=== PATIENT | male | born 1965 | race Caucasian/White ===

== ENCOUNTER 2016-06-16 18:29 | Inpatient (IN) ==
--- NOTE | 2016-06-16 19:22 | PROVIDER DOCUMENTATION ---
HPI-Abdominal Pain/GI Problem - General Chief Complaint: Cold Symptoms Stated Complaint: ABD/BACK PAIN, FEVER, COUGH, CONGESTION Time Seen by Provider: 06/16/16 19:17 Source: patient Allergies/Adverse Reactions: Patient Allergies Allergy/AdvReac Type Severity Reaction Status Date / Time No Known Allergies Allergy Verified 05/15/16 09:07 Home Medications: Home Medication List Medication Instructions Recorded Confirmed Last Taken Type NK [No Home Medications] 05/15/16 05/15/16 Unknown History - History of Present Illness-ABD Nature of Presenting Problems: 51 yom c/o chills, fever, abd pain, n/v. The symptoms been going on for about 5 days. Pt points to RUQ where most of the Abdominal pain is located. Pt's skin is jaundiced also. Pt reports having Hepatitis C 5 years ago but treated in [place] and was told it was cured. Abdominal Pain Onset Location: reports: RUQ Pain Radiation: reports: no radiation Quality of Pain: reports: sharp Onset/Duration: reports: 5 days ago Timing: reports: still present, getting worse Activities at Onset: reports: rest Exposure to sick contacts?: No Modifying Factors: improves with: coughing Associated Symptoms: reports: cough, fever/chills, nausea, vomiting Last BM: this morning Dark Stools Present?: reports: none noticed Rectal Bleeding: reports: none Rectal Pain: reports: none Bruising or Bleeding Gums?: No Similar Symptoms Previously?: No Recently seen or treated by another doctor?: No Review of Systems - Adult - REVIEW OF SYSTEMS - ADULT Constitutional: reports: see HPI, chills Eyes: reports: no symptoms reported Ears, Nose, Mouth & Throat: reports: no symptoms reported Cardiovascular: reports: no symptoms reported Respiratory: reports: see HPI, cough Gastrointestinal: reports: see HPI, abdominal pain, nausea, vomiting Genitourinary: reports: no symptoms reported Musculoskeletal: reports: no symptoms reported Integumentary: reports: see HPI, other (Jaundiced skin) Neurological: reports: see HPI All Other Systems: Reviewed and Negative Past History - Adult - PAST MEDICAL HISTORY-ADULT Review of Records: reports: Old Records Reviewed, Nursing Assessment Review, Medications Reviewed, Social history reviewed & non-contributory. Major Childhood Illnesses: reports: denies history Cardiovascular: reports: denies history Respiratory: reports: denies history Gastrointestinal: reports: denies history Obstetrical/Gynecological: reports: denies history Genitourinary: reports: denies history Musculoskeletal: reports: denies history Neurological: reports: denies history Endocrine/Immune: reports: denies history Other Conditions: reports: denies history Physical Exam-General - PHYSICAL EXAM-ADULT Initial Vital Signs Reviewed: Yes - CONSTITUTIONAL General Appearance: appears well, alert, no apparent distress - EYES Eyes: PERRL/EOMI, other (very mild Jaundiced conjuctiva) - HEAD, EARS, NOSE, MOUTH & THROAT HENMT: normocephalic/atraumatic, moist mucous membranes, normal ENT inspection, TMs normal, pharynx normal - NECK Neck: non-tender, full range of motion, supple, normal inspection - RESPIRATORY Respiratory: chest non-tender, lungs clear, normal breath sounds, no pleuratic chest pain, no respiratory distress, no accessory muscle use - CARDIOVASCULAR Cardiovascular: normal peripheral pulses, regular rate, rhythm, no edema, no gallop, no JVD, no murmur - GASTROINTESTINAL (ABDOMEN) Abdominal Exam: normal bowel sounds, soft, no pulsatile mass, tenderness, hepatomegaly. negative: spleenomegaly, McBurney's point tenderness, Das's sign, obturator sign, prominent aortic pulsations, psoas, Rovsing's sign - LYMPHATIC Lymphatic: no adenopathy - MUSCULOSKELETAL Back Exam: normal inspection, no CVA tenderness, no vertebral tenderness Extremity: normal range of motion, non-tender, normal gait, normal inspection, no pedal edema, no calf tenderness, normal capillary refill, pelvis stable - SKIN Integumentary: normal turgor, warm/dry, jaundice - NEUROLOGIC Neurologic: grossly normal - PSYCHIATRIC Psych/Mental Status: oriented x 3 Progress - PLAN OF CARE/RESULTS Progress/Plan/Lab Results: Vital Signs - 8 hr 06/16/16 18:35 Temperature 97.9 F Pulse Rate 104 H Respiratory Rate 18 Blood Pressure 139/95 O2 Sat by Pulse Oximetry 99 Orders Category Date Time Status Saline Loc DIRECTED Care 06/16/16 19:16 Ordered NPO Diet 06/16/16 19:[address] ABD/PELVIS W/ IV CONT ONLY [CT] Stat Exams 06/16/16 19:17 Ordered AMMONIA [CHEM] Stat Lab 06/16/16 19:16 Uncollected AMYLASE [CHEM] Stat Lab 06/16/16 19:16 Uncollected CBC WITH ELECTRONIC DIFF [HEME] Stat Lab 06/16/16 19:16 Uncollected COMPREHENSIVE METABOLIC PANEL [CHEM] Stat Lab 06/16/16 19:16 Uncollected LIPASE [CHEM] Stat Lab 06/16/16 19:16 Uncollected URINALYSIS W/POSS RFLX CULT-1 [URINALYSIS] Stat Lab 06/16/16 19:16 Uncollected Result Diagrams: 06/16/16 19:30 06/16/16 19:30 - XRAY 1 XRAY Study: Chest Impression: Normal (Per Dr. Bridges.) - CT/MRI 1 CT Study: Abdomen, Pelvis Impression: See EMR Report (Contractrion and marked thickening of the GB wall with high dense material in the GB lumen. Opacification and fluid aroung GB suggesting cholecystitis. Ascities around liver and layering in the pelvis.) - CONSULTS/PCP/HOSPITALIST Notification #1 *Consult/PCP/Hospitalist*: Erik Time Discussed: 22:43 Consult Disposition: Admit Departure - Departure Time of Disposition Decision: 22:42 DIAGNOSIS: Cirrhosis Qualifiers: Hepatic cirrhosis type: unspecified hepatic cirrhosis Ascites presence: with ascites Qualified Code(s): K74.60 - Unspecified cirrhosis of liver Disposition: ADMITTED INPATIENT 09 Certified Medical Emergency: Emergent Condition: Stable Referrals and Follow-Ups: None,PCP [Primary Care Provider] - - Critical Care Note This patient required my direct & personal management of CC.: No Attestation - Physician/ LOVE Attestation Patient care was provided by Advanced Practice Provider:: Yes Advanced Practice Provider:: Bassam Burns Advanced Practice Provider documentation review:: The Mid-level provider documentation, treatment plan and medical decision making was reviewed by the physician who agrees with all treatment and medical decision making by the MLP.
[2016-06-16 19:59] LABS: BASO% 0.8 % (0.0-0.8); EOS# 0.13 X1000 (0.0-0.7); EOS% 1.4 % (0.0-10.0); HEMATOCRIT 46.8 % (42.0-52.0); HEMOGLOBIN 16.5 g/dL (14.0-18.0); IMM GRAN# 0.03 X1000 (0.0-0.04); IMM GRAN% 0.3 % (0.0-0.5); LYMPH# 2.75 X1000 (1.2-3.4); LYMPH% 29.1 % (20.5-51.1); MANUAL DIFF NEEDED? NO; MCHC 35.3 g/dL (33-37); MCV 87.8 FL (81-99); MONO# 0.91 X1000 (0.11-0.59); MONO% 9.6 % (1.7-9.3); MPV 11.6 FL (7.4-10.4); NEUT% 58.8 % (42.2-75.2); PLT 74 X1000 (130-400); RBC 5.33 XMIL (4.7-6.1)
[2016-06-16 20:36] LABS: AGAP 14; ALBUMIN 3.6 g/dL (3.5-5.0); ALKALINE PHOSPHATASE 90 U/L (32-122); AMYLASE 33 U/L (20-200); BUN 20 mg/dL (8-22); CALCIUM 8.9 mg/dL (8.8-10.2); CHLORIDE 92 mmol/L (98-107); COSMO 262; GOT 2545 U/L (10-34); GPT 4534 U/L (10-44); LIPASE 27 U/L (13-60); POTASSIUM 4.7 mmol/L (3.5-5.1); SODIUM 129 mmol/L (136-145); TCO2 23 mmol/L (25-35); TOTAL PROTEIN 5.6 g/dL (6.3-8.3)
[2016-06-16 20:53] LABS: URINE SOURCE CLEAN CATCH
[2016-06-16 20:56] LABS: BILIRUBIN URINE LARGE (NEGATIVE); BLOOD URINE TRACE (NEGATIVE); COLOR YELLOW; GLUCOSE URINE NEGATIVE (NEGATIVE); LEUKOCYTES URINE NEGATIVE (NEGATIVE); NITRITE URINE NEGATIVE (NEGATIVE); PROTEIN URINE 30 mg/dL (NEGATIVE); SP GRAVITY URINE 1.021; TURBIDITY URINE HAZY (CLEAR); URINE MICRO REVIEW NEEDED? YES; UROBILINOGEN URINE 3 mg/dL (NORMAL)
[2016-06-16 21:02] LABS: UR EPITHELIAL CELLS <10 /HPF (<10); URINE BACTERIA NEGATIVE /HPF; URINE CULTURE NEEDED? YES; URINE RBC <10 /HPF (<10); URINE WBC TNTC /HPF (<10)
[2016-06-16 21:03] LABS: URINE CASTS EPITHELIAL PRESENT
[2016-06-16 21:12] LABS: INR 2.12
[2016-06-16 21:14] LABS: PROTIME 23.3 Seconds (9.2-11.7)
[2016-06-16 23:28] LABS: UR AMPHETAMINES QUAL NONE DETECTED (NONE DETECT); UR BARBITUATES QUAL NONE DETECTED (NONE DETECT); UR BENZODIAZEPIN QUAL NONE DETECTED (NONE DETECT); UR CANNABINOIDS QUAL NONE DETECTED (NONE DETECT); UR COCAINE QUAL NONE DETECTED (NONE DETECT); UR METHADONE QUAL NONE DETECTED (NONE DETECT); UR OPIATES QUAL NONE DETECTED (NONE DETECT); UR OXYCODONE QUAL NONE DETECTED (NONE DETECT); UR PCP QUAL NONE DETECTED (NONE DETECT)
[2016-06-16] MEDS: NS 1,000 ML IV SCH (23:34)
[2016-06-16] MEDS: ZOFRAN IV PRN (23:34)
[2016-06-17] MEDS: ZOSYN 3.375 GM/NS 3.375 GM/50 ML IVPB IV SCH ×4 (00:43→17:05)
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
[2016-06-17 07:24] LABS: MANUAL DIFF NEEDED? NO
[2016-06-17] MEDS: NS 1,000 ML IV SCH ×2 (07:27→15:53)
[2016-06-17] MEDS: PRILOSEC PO SCH ×2 (07:27→10:09)
[2016-06-17 07:47] LABS: INR 2.06
[2016-06-17 07:54] LABS: AGAP 11; ALBUMIN 3.4 g/dL (3.5-5.0); ALKALINE PHOSPHATASE 84 U/L (32-122); BUN 18 mg/dL (8-22); CALCIUM 8.8 mg/dL (8.8-10.2); CHLORIDE 98 mmol/L (98-107); COSMO 268; POTASSIUM 4.2 mmol/L (3.5-5.1); SODIUM 133 mmol/L (136-145); TCO2 24 mmol/L (25-35); TOTAL BILIRUBIN 17.87 mg/dL (0.20-1.00); TOTAL PROTEIN 5.2 g/dL (6.3-8.3)
[2016-06-17 08:02] LABS: BASO% 0.5 % (0.0-0.8); EOS# 0.14 X1000 (0.0-0.7); EOS% 1.8 % (0.0-10.0); HEMATOCRIT 46.6 % (42.0-52.0); HEMOGLOBIN 16.4 g/dL (14.0-18.0); IMM GRAN# 0.06 X1000 (0.0-0.04); IMM GRAN% 0.8 % (0.0-0.5); LYMPH# 2.64 X1000 (1.2-3.4); LYMPH% 33.9 % (20.5-51.1); MCH 31.2 PG (27-31); MCHC 35.2 g/dL (33-37); MCV 88.6 FL (81-99); MONO# 0.93 X1000 (0.11-0.59); MPV 12.5 FL (7.4-10.4); PLT 72 X1000 (130-400); PROTIME 22.7 Seconds (9.2-11.7); RBC 5.26 XMIL (4.7-6.1)
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
[2016-06-17 08:36] LABS: GOT 1677 U/L (10-34); GPT 3731 U/L (10-44)
--- NOTE | 2016-06-17 10:47 | Diag Imaging Result Document ---
PROCEDURE NAME: CHEST-2 VIEWS - 06/16/2016 CHEST X-RAY 2 VIEWS, 06/16/2016: COMPARISON: 05/03/2016. FINDINGS: There are stable small calcified granulomas. No focal infiltrates, pneumothorax, or pleural effusion. Heart size and pulmonary vascularity are normal. IMPRESSION: No acute disease or change from prior.
--- NOTE | 2016-06-17 12:06 | Diag Imaging Result Document ---
PROCEDURE NAME: US ABDOMEN-COMPLETE - 06/17/2016 ULTRASOUND ABDOMEN COMPLETE, 06/17/2016: COMPARISON: 06/16/2016. FINDINGS: There is complete shadowing of the gallbladder fossa, nonspecific. The pancreas is obscured by bowel gas. The spleen is enlarged. The spleen measures 16.1 x 6.8 cm. There is trace perihepatic free fluid. The liver is normal in echogenicity. The common bile duct measures 6 mm. Both kidneys are normal. Aorta, IVC and main portal vein are patent. IMPRESSION: 1. Dense shadowing in the gallbladder fossa which is indeterminate. This may possibly suggest emphysematous cholecystitis, versus a porcelain gallbladder. Correlate clinically. A HIDA scan may be useful. 2. Trace perihepatic free fluid. 3. Splenomegaly.
[2016-06-17 15:04] LABS: TOTAL IRON 181 ug/dL (53-167); UNBOUND IRON < 1 ug/dL (112-346)
[2016-06-17 15:09] LABS: TIBC 181 ug/dL
[2016-06-17 15:10] LABS: IRON SATURATION 100 %
--- NOTE | 2016-06-17 15:36 | PROGRESS NOTE ---
DATE: 06/17/2016 SUBJECTIVE: Today, Mr. Hendricks refers to be doing a little better. According to him, he started having cold symptoms about a couple of days ago, and he started using ibuprofen 2 tablets every 2- 3 hours constantly. For about 3 days now, he started having generalized weakness, nausea, vomiting, epigastric pain, and colored urination. OBJECTIVE: Vital Signs: Blood pressure is 126/78, pulse of 83, respirations 21 , temperature 97.7 degrees. General: Mr. Hendricks is a 51-year-old male. He is in bed. He does not seem to be in any distress. HEENT: Mucosa is pink and moist. 3+ icteric. No cyanosis. Cardiovascular: Regular rate and rhythm. Abdomen is soft. It is tender in the right upper quadrant and epigastrium. No hepatosplenomegaly. The abdominal wall has a midline surgical scar. There is also about a 4 cm newly staged scar on the left epigastrium and old scars as well on the left side of the abdominal wall. Extremities: No pedal edema. 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 There is no focal neurological deficit. LABORATORY DATA: WBC is 7.78, hemoglobin is 15.4, platelet count is 72,000. Chemistry: Sodium is 133, potassium is 4.2, chloride is 98, bicarb is 24. AST is 1677, ALT is 3783, alkaline phosphatase is normal. IMAGING: A CT scan of the abdomen and pelvis shows ascites likely from cirrhosis and/or cholecystitis possible. Gangrenous cholecystitis cannot be excluded. ASSESSMENT: 1. Transaminitis. Etiology is unclear at this point. The patient does have an underlying hepatitis C, but I think he was abusing drugs, specifically ibuprofen which we know can cause drug-induced liver injury (DILI ), and I am suspecting that is the cause of the acute hepatitis. Hepatitis titers have been sent. The patient's lab work and toxicology also reveal acetaminophen level of 5.7 which is remarkably low. 2. Suspected gangrenous cholecystitis. An ultrasound has been ordered. We are still waiting on the official report on that, however, also consulted the surgeons to evaluate the patient. 3. History of hepatitis C noted. 4. Resident of a correctional facility. 5. Mild hypernatremia is improving. 6. Cirrhosis of the liver on CT scan with ascites. Esl Instructor has been consulted. I think, in general, Mr. Hendricks is relatively stable. He has an possible [id number] hepatitis which I think is probably drug induced. We will be waiting on GI to evaluate the patient and give us some recommendations. For now, we will continue the current symptomatic management, avoiding any hepatotoxic drugs and also await surgery to evaluate the patient for the possible gangrenous cholecystitis. cc: Joon Mueller MD [facility]
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
[2016-06-18] MEDS: NS 1,000 ML IV SCH ×4 (01:55→23:05)
[2016-06-18] MEDS: ZOFRAN IV PRN (01:55)
[2016-06-18] MEDS: ZOSYN 3.375 GM/NS 3.375 GM/50 ML IVPB IV SCH ×5 (05:34→23:05)
[2016-06-18] MEDS: PRILOSEC PO SCH ×2 (05:59→08:55)
[2016-06-18 06:25] LABS: MANUAL DIFF NEEDED? NO
[2016-06-18 06:33] LABS: BASO% 0.6 % (0.0-0.8); EOS% 2.1 % (0.0-10.0); HEMATOCRIT 44.9 % (42.0-52.0); HEMOGLOBIN 15.4 g/dL (14.0-18.0); IMM GRAN# 0.07 X1000 (0.0-0.04); IMM GRAN% 1.4 % (0.0-0.5); LYMPH# 1.49 X1000 (1.2-3.4); LYMPH% 30.8 % (20.5-51.1); MCH 30.9 PG (27-31); MCHC 34.3 g/dL (33-37); MONO% 14.5 % (1.7-9.3); MPV 12.3 FL (7.4-10.4); NEUT% 50.6 % (42.2-75.2); PLT 62 X1000 (130-400); RBC 4.99 XMIL (4.7-6.1)
[2016-06-18 06:38] LABS: INR 1.81; PROTIME 19.7 Seconds (9.2-11.7)
[2016-06-18 07:10] LABS: AGAP 9; ALBUMIN 3.1 g/dL (3.5-5.0); ALKALINE PHOSPHATASE 81 U/L (32-122); BUN 13 mg/dL (8-22); CALCIUM 7.8 mg/dL (8.8-10.2); CHLORIDE 101 mmol/L (98-107); COSMO 271; GOT 823 U/L (10-34); GPT 2431 U/L (10-44); POTASSIUM 3.9 mmol/L (3.5-5.1); SODIUM 135 mmol/L (136-145); TCO2 25 mmol/L (25-35); TOTAL PROTEIN 5.1 g/dL (6.3-8.3)
[2016-06-18 07:11] LABS: TOTAL BILIRUBIN 16.25 mg/dL (0.20-1.00)
--- NOTE | 2016-06-18 09:27 | Diag Imaging Result Document ---
PROCEDURE NAME: HIDA SCAN W/O EJECT. FRACTION - 06/18/2016 NUCLEAR MEDICINE HIDA SCAN: COMPARISON: No prior HIDA scan is available for comparison. FINDINGS: 5.9 mCi of technetium-99 Choletec was administered intravenously, and there was normal immediate hepatocellular uptake after administration. After 90 minutes, there was no identifiable radiotracer in the lumen of the gallbladder and none in the small bowel. As was also suggested on CT, this would suggest cholecystitis. Although no definite biliary ductal dilatation was identified on the prior CT, biliary obstruction cannot be excluded. IMPRESSION: No radiotracer seen in the gallbladder or the small bowel after 90 minutes. Please see above discussion. An abnormally low ejection fraction (less than 35%) can be present in patients without gallbladder dyskinesis or chronic cholecystitis who have other medical conditions. These include, but are not limited to, patients with diabetes mellitus, irritable bowel syndrome, , gastroenteritis, peptic ulcer disease, and patients who are receiving morphine or nifedipine.
--- NOTE | 2016-06-18 11:28 | PROGRESS NOTE ---
DATE: 06/18/2016 SUBJECTIVE: Patient states he is feeling a little better today. He currently denies any pain. OBJECTIVE: Vital Signs: Temperature 98.6 degrees, pulse 76, respirations 21, blood pressure 135/95. Generally: Patient is awake, alert, no acute distress. HEENT: He is still jaundiced in the eyes. Respiratory: With some wheezing. He has a productive cough. Abdomen: Positive bowel sounds. Soft. Skin: Jaundice. LABORATORY: Hematology: White count 4.84, hemoglobin 15.4, hematocrit 44.9, MCV 90.0, platelets 62,000. Coagulation: Pro time 19.7, INR 1.81. Chemistry: Sodium 135, potassium 3.9, chloride 101, CO2 25, BUN 13, creatinine 0.8, glucose 117. Iron 181, TIBC 181, percent saturation 100, ferritin 6709, total bilirubin 16.25. AST 823, ALT 2431, alkaline phosphatase 81, ammonia was 46. Amylase 33, lipase 27. Total protein 5.1. ASSESSMENT AND PLAN: 1. Elevated transaminases. 2. Acute hepatitis, questionable viral versus drug induced liver injury versus ischemic injury. We are awaiting hepatitis profile, awaiting HCV viral load due to his history of hepatitis C. His LFTs have improved some today. Continue supportive care. Further plans will be made as needed. I will discuss this case with Dr. Durán and further plans to be made by him. Dictated by MELIA Morse for Pelon Durán MD cc: MELIA Gonzales MD
[2016-06-18 12:03] LABS: HEPATITIS PROFILE ACUTE SEE COMMENTS
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
[2016-06-19] MEDS: ZOSYN 3.375 GM/NS 3.375 GM/50 ML IVPB IV SCH ×4 (05:50→21:52)
[2016-06-19] MEDS: PRILOSEC PO SCH ×2 (06:03→07:52)
[2016-06-19 06:13] LABS: MANUAL DIFF NEEDED? NO
[2016-06-19 06:21] LABS: BASO% 0.5 % (0.0-0.8); EOS# 0.11 X1000 (0.0-0.7); EOS% 1.9 % (0.0-10.0); HEMATOCRIT 41.8 % (42.0-52.0); HEMOGLOBIN 14.4 g/dL (14.0-18.0); IMM GRAN# 0.21 X1000 (0.0-0.04); IMM GRAN% 3.6 % (0.0-0.5); LYMPH# 1.61 X1000 (1.2-3.4); LYMPH% 27.9 % (20.5-51.1); MCHC 34.4 g/dL (33-37); MCV 90.1 FL (81-99); MONO# 1.01 X1000 (0.11-0.59); MONO% 17.5 % (1.7-9.3); MPV 11.5 FL (7.4-10.4); NEUT% 48.6 % (42.2-75.2); PLT 59 X1000 (130-400); RBC 4.64 XMIL (4.7-6.1)
[2016-06-19 06:22] LABS: INR 1.54; PROTIME 16.6 Seconds (9.2-11.7)
[2016-06-19 06:31] LABS: AGAP 9; ALKALINE PHOSPHATASE 87 U/L (32-122); BUN 12 mg/dL (8-22); CALCIUM 7.8 mg/dL (8.8-10.2); CHLORIDE 102 mmol/L (98-107); COSMO 267; GOT 332 U/L (10-34); POTASSIUM 3.9 mmol/L (3.5-5.1); SODIUM 134 mmol/L (136-145); TCO2 23 mmol/L (25-35); TOTAL BILIRUBIN 14.04 mg/dL (0.20-1.00); TOTAL PROTEIN 5.3 g/dL (6.3-8.3)
[2016-06-19 06:51] LABS: GPT 1602 U/L (10-44)
[2016-06-19] MEDS: NS 1,000 ML IV SCH ×2 (07:49→16:00)
[2016-06-19] MEDS: ZOFRAN IV PRN (07:50)
[2016-06-19 13:23] LABS: HCV BY PCR SEE COMMENTS; HCV CHARGE YES
--- NOTE | 2016-06-19 14:48 | PROGRESS NOTE ---
DATE: 06/19/2016 SUBJECTIVE: The patient reports some abdominal discomfort. He complains of gas. OBJECTIVE: Vital Signs: Temperature 98.1 degrees, pulse 75, respirations 20, blood pressure 143/97. General: Patient is awake and alert, in no acute distress. HEENT: Some scleral jaundice. Respiratory: Some wheezing. Abdomen: Soft. Positive bowel sounds. Skin: Jaundiced. LABORATORY: Hematology: White count 5.78, hemoglobin 14.4, hematocrit 41.8, platelets 59,000. Coagulation: Prothrombin time 16.6, INR 1.54. Chemistry: Sodium 134, potassium 3.9, chloride 102, CO2 of 23, BUN 12, creatinine 0.7, glucose 85, calcium 7.8, iron 181, TIBC 181, % saturation 100, ferritin 6709, total bilirubin 14.04, AST 332, ALT 1602. Serology: Hepatitis panel nonreactive to hepatitis A and B. Hepatitis C antibody is reactive. His HCV RNA showed positive. HCV was 590,654. HCV log 5.77. ASSESSMENT AND PLAN: 1. Jaundice. 2. Elevated transaminases. 3. Elevated ferritin and iron saturation. 4. Hepatitis C with detectable viral load, most likely it is either a relapse or reinfection. PLAN: His liver numbers are improving. Continue supportive care. We will check HFE gene for hemochromatosis. He will need to be re-treated for hepatitis C. Check Hepatitis C genotype. We will continue to follow during his hospital course, and follow up as outpatient once discharged. I will discuss this case with Dr. Durán and further plans will be made as needed. Dictated by MELIA Morse for Pelon Durán MD cc: MELIA Gonzales MD [facility]
--- NOTE | 2016-06-19 22:04 | PROGRESS NOTE ---
DATE: 06/19/2016 SUBJECTIVE: Mr. Hendricks is feeling better. His abdomen is still sore. Still some epigastric discomfort. Enzymes are coming down. He is eating. LABORATORY DATA: Labs from this morning with white count 5780, hematocrit 41, platelet count 59,000. Sodium 134, potassium 3.9, chloride 102, bicarb 23, BUN 12, creatinine 0.2. His liver enzymes, transaminases, are coming down. Bilirubin is coming down as well. Bilirubin down to 14.04. AST down to 332. ALT is 1602. Albumin is 3.0. We did a hepatitis profile. We did a hepatitis RNA and hepatitis quantitative RNA. Patient quantification HCV log 5.77. ASSESSMENT AND PLAN: Patient clinically is improving. Will discuss with Dr. Durán. Jaundiced is improved and transaminases are going down. Continue supportive care. Will check HFE gene for hemochromatosis. Will need to be retreated for hepatitis C and check hepatitis C genotype. Continue to follow during his course. I think he will need followup and hopefully he can be discharged tomorrow. Will discuss with the team. cc: Esdras Warner MD
[2016-06-20] MEDS: ZOSYN 3.375 GM/NS 3.375 GM/50 ML IVPB IV SCH ×3 (06:00→11:10)
[2016-06-20] MEDS: NS 1,000 ML IV SCH ×4 (06:03→15:26)
[2016-06-20] MEDS: PRILOSEC PO SCH (06:54)
[2016-06-20 07:20] LABS: MANUAL DIFF NEEDED? NO
[2016-06-20 07:27] LABS: INR 1.38; PROTIME 14.8 Seconds (9.2-11.7)
[2016-06-20 07:34] LABS: BASO% 0.5 % (0.0-0.8); EOS# 0.07 X1000 (0.0-0.7); EOS% 1.7 % (0.0-10.0); HEMATOCRIT 39.9 % (42.0-52.0); HEMOGLOBIN 13.8 g/dL (14.0-18.0); IMM GRAN# 0.15 X1000 (0.0-0.04); IMM GRAN% 3.6 % (0.0-0.5); LYMPH# 0.93 X1000 (1.2-3.4); LYMPH% 22.1 % (20.5-51.1); MCH 31.4 PG (27-31); MCHC 34.6 g/dL (33-37); MCV 90.7 FL (81-99); MONO# 0.78 X1000 (0.11-0.59); MONO% 18.5 % (1.7-9.3); NEUT% 53.6 % (42.2-75.2); PLT 64 X1000 (130-400)
[2016-06-20 08:15] LABS: AGAP 9; ALBUMIN 2.7 g/dL (3.5-5.0); ALKALINE PHOSPHATASE 96 U/L (32-122); BUN 11 mg/dL (8-22); CALCIUM 7.8 mg/dL (8.8-10.2); CHLORIDE 104 mmol/L (98-107); COSMO 270; GOT 146 U/L (10-34); GPT 1023 U/L (10-44); POTASSIUM 3.9 mmol/L (3.5-5.1); SODIUM 135 mmol/L (136-145); TCO2 22 mmol/L (25-35); TOTAL BILIRUBIN 11.32 mg/dL (0.20-1.00)
[2016-06-20] MEDS ORDERED: PRILOSEC PO ONE (12:41)
[2016-06-20 13:52] VITALS: BP 144/94
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
--- NOTE | 2016-06-20 17:45 | PROGRESS NOTE ---
DATE: 06/20/2016 SUBJECTIVE: Patient is resting comfortably. Was sitting up in the bed. Did not have any complaints. OBJECTIVE: Vitals: Temperature 97.7 degrees, pulse of 75, breathing at 14, blood pressure 144/94. Is still icteric. Abdomen is soft, bowel sounds audible. LABS: His bilirubin has dropped to 11.32 from 17.30 on admission. AST is down to 146, ALT 1023 which on admission was 4534. He is hepatitis C positive and quantitative he had 147,000 in his blood. HFE gene is still pending. IMPRESSION: Acute hepatitis, most likely viral. This could very well be acute hepatitis C. He may have underlying liver disease, possibly hemochromatosis, but HFE gene is pending. He had elevated ferritin along with elevated iron saturation. At this point, no new suggestions except continue to recheck labs, LFTs, hydrate, and avoid fatty food. Continue symptomatic treatment and follow up with me at the office in a couple weeks with a new LFT. By then will have the results of the HFE gene available as well. At this point, I do not think he needs to have a liver biopsy yet. I have discussed the case with Dr. Warner and Dr. Dwyer. Dr. Dwyer, who is actually a [facility] physician, and he had accepted him and he said he will take care of him in the [facility], and if needed he will send him back to my office for further management. I have also discussed the case with Dr. Warner. cc: MD BRUCE Krishnan
[2016-06-21 19:14] LABS: HEPATITIS C GENOTYPE SEE COMMENTS
== END 2016-06-20 16:28 ==
LOC: ED 18:29 → 3N 23:51 → SUATTDRO 23:51 → 3N 23:55
PROVIDERS: ATTEND Emergency Medicine